=== PATIENT | female | born 1990 | race Caucasian/White ===

== ENCOUNTER 2017-11-29 10:42 | Emergency (ER) | payer SELFPAY ==
[2017-11-29 11:06] VITALS: TEMP 98.8; O2SAT 98
[2017-11-29 11:24] VITALS: BP 118/87
--- NOTE | 2017-11-29 12:17 | ED.PDOC ---
History of Present Illness - General Chief Complaint: General Stated Complaint: dizzy,drowsy Time Seen by Provider: 11/29/17 10:47 Source: patient Exam Limitations: no limitations - History of Present Illness Initial Comments: the patient is a 27-year-old female presenting to the emergency room secondary to symptoms of mild dizziness and urinary frequency. The patient is also recently started taking a dietary supplement called arrived in the form of pills and patches. No palpitations. No syncope. Questionable near syncope. No rash. No shortness of breath. Symptoms mainly started this morning. Timing/Duration: 4-6 hours Severity: moderate Improving Factors: nothing Worsening Factors: movement Associated Symptoms: denies symptoms Allergies/Adverse Reactions: Allergies NO KNOWN ALLERGY Allergy (Unverified 06/22/14 19:51) Home Medications: Ambulatory Orders Lhjulnuwcj-Rshnfwlhsampq-Oqdrz [Fioricet/Codeine 58-074-08-30 mg] 1 cap PO Q1- 2H PRN 06/22/14 Zolpidem Tartrate [Ambien] 5 mg PO BEDTIME PRN 06/22/14 Acyclovir [Zovirax] 400 mg PO TID #21 tab 07/02/14 Cephalexin Monohydrate [Keflex] 500 mg PO Q8H #15 cap 11/29/17 Review of Systems - Review of Systems Constitutional: States: malaise EENTM: States: no symptoms reported Respiratory: States: no symptoms reported Cardiology: States: no symptoms reported Gastrointestinal/Abdominal: States: no symptoms reported Genitourinary: States: frequency Musculoskeletal: States: no symptoms reported Skin: States: no symptoms reported Neurological: States: other - dizziness Endocrine: States: no symptoms reported All other Systems: No Change from Baseline Past Medical History (General) - Patient Medical History Hx Seizures: No Hx Stroke: No Hx Dementia: No Hx Asthma: No Hx of COPD: No Hx Cardiac Disorders: No Hx Congestive Heart Failure: No Hx Pacemaker: No Hx Hypertension: No Hx Thyroid Disease: No Hx Diabetes: No Hx Gastroesophageal Reflux: No Hx Renal Disease: No Hx Cancer: No Hx of HIV: No Hx Hepatitis C: No Hx MRSA: No - Vaccination History Hx Tetanus, Diphtheria Vaccination: No Hx Influenza Vaccination: Yes Immunizations Up to Date: Yes - Social History Hx Tobacco Use: No Hx Alcohol Use: No Hx Substance Use: No - Female History Patient is a Female of Child Bearing Age (10 -59 yrs old): Yes Hx Last Menstrual Period: 11/08/15 Patient : No Expected Date of Delivery:: 10/19/14 Family Medical History - Family History Mother Family History: Unknown Hx Family;Other: Pt reports no family history. Physical Exam - Physical Exam General Appearance: Alert, Comfortable, No apparent distress Eye Exam: bilateral normal Ears, Nose, Throat: hearing grossly normal, normal ENT inspection, normal pharynx Neck: full range of motion, supple Respiratory: lungs clear, normal breath sounds, no respiratory distress, no accessory muscle use Cardiovascular/Chest: normal peripheral pulses, regular rate, rhythm, no edema Peripheral Pulses: radial,right: 2+, radial,left: 2+, dorsalis pedis,right: 2+, dorsalis pedis,left: 2+ Gastrointestinal/Abdominal: non tender, soft Rectal Exam: deferred Back Exam: normal inspection, no CVA tenderness Extremity: non-tender, normal inspection, no pedal edema, normal capillary refill 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 II-XII nml as tested, alert, normal mood/affect, oriented x 3 Skin Exam: normal color Comments: Vital Signs - 24 hr 11/29/17 11/29/17 11/29/17 11:01 11:04 11:05 Temperature 98.8 F Pulse Rate [ 95 H 77 85 Right Brachial] Respiratory 20 Rate Blood Pressure 118/89 121/77 120/85 [Right Arm] O2 Sat by Pulse 98 Oximetry 11/29/17 11:06 Temperature Pulse Rate [ 100 H Right Brachial] Respiratory Rate Blood Pressure 118/87 [Right Arm] O2 Sat by Pulse Oximetry Progress - Progress Progress: 11/29/17 12:17 the patient is a 27-year-old occasion female presenting to the emergency room secondary to some dizziness and urinary frequency. It does appear the patient has a small urinary tract infection and will be placed on Keflex for the next 5 days. She does need a test of cure in the next week. The patient additionally has some dizziness and is tilt positive by pulse. Urine is also concentrated. She does need to significantly increase her fluid intake over the next few days. I would also recommend holding the diet supplement for at least the next week and then restarting it in parts to see if this is contributing to her symptoms. ER warnings were given for any significant worsening. - Results/Orders Results/Orders: Laboratory Tests 11/29/17 11/29/17 11/29/17 11:20 11:20 11:20 Urine Color Yellow Urine Appearance Sl cloudy Urine pH 5.5 Ur Specific Girard >= 1.030 Urine Protein 100 H Urine Glucose (UA) Negative Urine Ketones 15 H Urine Blood Trace-intact H Urine Nitrite Negative Urine Bilirubin Small H Urine Urobilinogen 0.2 Ur Leukocyte Esterase Small H Urine RBC 1-3 Urine WBC 3-5 H Ur Epithelial Cells 10-20 Calcium Oxalate Crystal 1+ Urine Bacteria Rare Urine HCG, Qual Negative Urine Opiates Screen Negative Urine Barbiturates Positive H Ur Phencyclidine Scrn Negative U Amphetamin/Meth Scrn Negative U Benzodiazepines Scrn Negative U Cocaine Metab Screen Negative U Cannabinoids Screen Negative - EKG/XRAY/CT CT Ordered: No Departure - Departure Clinical Impression: Orthostasis, Dehydration, Cystitis Disposition: Discharge to Home or Self Care Condition: Fair Departure Forms: ED Discharge - Pt. Copy, Patient Portal Self Enrollment Instructions: Orthostatic Hypotension (DC), Urinary Tract Infection, Adult (DC) Diet: regular diet Activity: increase activity as tolerated Referrals: WARD PEACOCK [Primary Care Provider] - 1-5 Days Prescriptions: Cephalexin Monohydrate [Keflex] 500 mg PO Q8H #15 cap Home Medications: Ambulatory Orders Bnjvihlhqp-Jnyaaoqwqyhel-Hbmji [Fioricet/Codeine [id number] mg] 1 cap PO Q1- 2H PRN 06/22/14 Zolpidem Tartrate [Ambien] 5 mg PO BEDTIME PRN 06/22/14 Acyclovir [Zovirax] 400 mg PO TID #21 tab 07/02/14 Cephalexin Monohydrate [Keflex] 500 mg PO Q8H #15 cap 11/29/17 Additional Instructions: the patient is a 27-year-old occasion female presenting to the emergency room secondary to some dizziness and urinary frequency. It does appear the patient has a small urinary tract infection and will be placed on Keflex for the next 5 days. She does need a test of cure in the next week. The patient additionally has some dizziness and is tilt positive by pulse. Urine is also concentrated. She does need to significantly increase her fluid intake over the next few days. I would also recommend holding the diet supplement for at least the next week and then restarting it in parts to see if this is contributing to her symptoms. ER warnings were given for any significant worsening.
== END 2017-11-29 14:42 | disposition home or self-care (01) ==
LOC: ER 10:42
DX: N30.90 Cystitis, unspecified without hematuria (principal); E86.0 Dehydration; I95.1 Orthostatic hypotension